=== PATIENT | female | born 1985 | race Native Hawaiian/Other Pacific Islander ===

== ENCOUNTER 2017-03-30 16:53 | Emergency (ER) | payer OTHER ==
[~2017-03-30] VITALS: Ht 154.9 cm; Wt 70.3 kg
--- NOTE | ~2017-03-30 | EKG ---
[address] [place] [address] ELECTROCARDIOGRAM REPORT Name: JAROCHO LAWLER Room #: DEP [facility]#: [id number] Admission: 03/30/17 Attend Phys: Discharge: 03/30/17 Date of : 83 Report #: [id number] THIS REPORT FOR: //name// [facility] ED Test Date: 2017-03-30 Test Time: 18:52:15 Pat Name: JAROCHO LAWLER Department: Room: Gender: F [employer]: MALI : 1985 Requested By: Richard Dawkins Order Number: [id number] MD: Kyree Nichols Measurements Intervals [place] Rate: 63 P: 40 GA: 177 QRS: 40 QRSD: 88 T: 0 QT: 420 QTc: 430 Interpretive Statements Sinus rhythm Nonspecific ST segment abnormality No previous ECG available for comparison Electronically Signed On 03-31-2017 18:19:20 CDT by Kyree Nichols [email or web address] <ELECTRONICALLY SIGNED> By: Kyree Nichols MD, [facility] 03/31/17 1819 185 51 Kyree Nichols MD, FACC /EPI
[2017-03-30] MEDS ORDERED: COZAAR 50 MG TA50 M2 PO ×2 (18:05→20:19)
[2017-03-30 19:16] LABS: HEMATOCRIT 36.4 % (37.0-47.0); HEMOGLOBIN 12.5 gm/dL (12.0-15.0); MCHC 34.4 g/dL (28.0-37.0); MCV 87.3 fL (80.0-100.0); PLATELET COUNT 330 thou/uL (150-400); RBC 4.17 mil/uL (4.20-5.00); RDW 13.2 % (10.5-14.5); WBC 9.2 thou/uL (4.0-11.0)
[2017-03-30 19:19] LABS: MANUAL DIFF YES
[2017-03-30 19:21] LABS: CALCIUM 8.8 mg/dL (8.5-10.1); CREATININE 0.9 mg/dL (0.6-1.0); POTASSIUM 3.5 mmol/L (3.5-5.1)
[2017-03-30 19:35] LABS: ALBUMIN 3.1 g/dL (3.4-5.0); MAGNESIUM 1.8 mg/dL (1.8-2.4); TOTAL BILIRUBIN 0.2 mg/dL (<0.1-1.0); TOTAL PROTEIN 7.2 g/dL (6.4-8.2)
[2017-03-30 20:00] LABS: ABSOLUTE NEUTROPHILS 2.8 thou/uL (1.4-8.2); TOTAL CELL COUNT 100
[2017-03-30 20:15] LABS: URINE BILIRUBIN NEGATIVE (Negative); URINE BLOOD NEGATIVE (Negative); URINE COLOR YELLOW; URINE GLUCOSE-RANDOM* NEGATIVE (Negative); URINE KETONES NEGATIVE (Negative); URINE NITRITE NEGATIVE (Negative); URINE PROTEIN (DIPSTICK) NEGATIVE (Negative); URINE SPECIFIC GRAVITY 1.015 (1.003-1.035); URINE UROBILINOGEN 0.2 E.U./dl (0.2-1.0)
[2017-03-30] MEDS ORDERED: BUTALB-APAP-CA1 EACH PO (20:19)
[2017-03-30 20:27] VITALS: BP 150/106
== END 2017-03-30 20:35 | disposition home or self-care (01) ==
LOC: ER 16:53
PROVIDERS: Emergency Medicine
DX: I10 Essential (primary) hypertension (principal)